=== PATIENT | female | born 1980 | race African-American/Black ===

== ENCOUNTER 2019-07-22 19:47 | Observation (INO) | payer OTHER, MEDICAID, SELFPAY ==
[2019-07-22] VITALS (8 sets, daily range): BP systolic 114–149; BP diastolic 66–85; PULSE 97–125; RESP 13–23; TEMP 37.9–39; O2SAT 92–98
--- NOTE | 2019-07-22 20:06 | DI.RAD.S_ITS ---
PROCEDURE: XR CHEST 1V INDICATIONS: fever, chills, cough TECHNIQUE: One view of the chest was acquired. COMPARISON: [facility], CR, XR CHEST 1 VIEW, 02/26/2019, 12:44. FINDINGS: Surgical changes and devices: None. Lungs and pleura: Lungs are clear. No pleural effusions or pneumothorax. Mediastinum: Mediastinal contours appear normal. Heart size is normal. Bones and chest wall: No suspicious bony lesions. Overlying soft tissues appear unremarkable. IMPRESSION: No acute cardiopulmonary disease process. Dictated by: June Singh MD, PhD on 07/22/2019 at 20:52 Approved by: June Singh MD, PhD on 07/22/2019 at 20:52
--- NOTE | 2019-07-22 20:24 | ED.FEVER ---
HPI - Fever General Chief Complaint: Fever Stated Complaint: really high temp/body pains/sob Time Seen by Provider: 07/22/19 20:00 Source: patient and family Mode of arrival: ambulatory Limitations: no limitations History of Present Illness HPI Narrative: 38-year-old female smoker morbidly obese patient with history of diabetes and hypertension presents with a friend and a chief complaint of a sudden onset severe abdominal pain with fever and shaking chills. Prior to her arrival her fever was measured orally at a maximum of 102 F. She denies much in the way of specific symptoms such as runny nose, sore throat or cough. She has no chest pain or shortness of breath. She denies any provocation or palliation of her abdominal pain nor any radiation. She denies any rash nor urinary complaints such as dysuria, frequency or urgency. She has no change in bowel habits. MD complaint: fever Onset (ago): hour(s) Temperature Source: oral Associated symptoms: chills and rigors Relieving factors: nothing Exacerbating factors: nothing Treatments prior to arrival fever: none Related Data Home Medications Medication Instructions Recorded Confirmed ALBUTEROL SULFATE (Ventolin / 1 - 2 puff INH QID PRN #0 01/17/11 07/23/19 Proventil) ALBUTEROL SULFATE/IPRATROPIUM 1 neb INH QID #0 01/17/11 07/23/19 (Iprat-Albut 0.5-3(2.5) MG/3 Ml) LISINOPRIL (Zestril / Prinivil) 10 mg PO Q DAY #0 01/17/11 07/23/19 Metformin Hydrochloride 500 mg PO DAILY #0 01/17/11 07/23/19 (Glucophage) glimepiride 4 mg PO DAILY 07/23/19 07/23/19 Allergies Allergy/AdvReac Type Severity Reaction Status Date / Time hydrocodone [From Vicodin] Allergy Severe Hives Verified 07/22/19 20:46 ibuprofen Allergy Severe Anaphylaxis Verified 07/22/19 20:46 acetaminophen AdvReac Vomiting Verified 07/22/19 20:46 [From Darvocet-N] ketorolac [From Toradol] AdvReac Vomiting Verified 07/22/19 20:46 propoxyphene AdvReac Vomiting Verified 07/22/19 20:46 [From Darvocet-N] Review of Systems Constitutional Constitutional: Reports chills, Denies fatigue, Reports fever(s), Denies frequent falls, Denies lethargy and Denies weakness Eyes Eyes: Denies change in vision, Denies eye discharge, Denies irritation and Denies loss of vision ENT Ears, Nose, Mouth, and Throat: Denies change in voice, Denies dizziness, Denies neck pain, Denies sore throat and Denies throat swelling Cardiovascular Cardiovascular: Denies chest pain, Denies irregular heart rhythm, Denies lightheadedness, Denies palpitations, Denies dyspnea, Denies dyspnea on exertion and Denies orthopnea Respiratory Respiratory: Denies cough, Denies dyspnea, Denies dyspnea on exertion and Denies wheezing Gastrointestinal Gastrointestinal: Reports abdominal pain, Denies change in bowel habits, Denies diarrhea, Denies nausea and Denies vomiting Genitourinary Genitourinary: Denies hematuria, Denies flank pain, Denies urinary incontinence and Denies urinary urgency Musculoskeletal Musculoskeletal: Denies back pain, Denies muscle weakness, Denies neck pain, Denies numbness and Denies tingling Integumentary/Breasts Skin/Breast: Denies pruritus, Denies erythema, Denies rash and Denies wounds Neurologic Neurologic: Denies behavioral changes, Denies confusion, Denies dizziness, Denies frequent falls, Denies loss of vision, Denies numbness, Denies tingling and Denies weakness Psychiatric Psychiatric: Denies anxiety, Denies behavioral changes, Denies confusion, Denies depression, Denies homicidal ideation and Denies suicidal ideation Endocrine Endocrine: Denies fatigue, Denies flushing and Denies palpitations Hematologic/Lymphatic Hematologic/Lymphatic: Denies easy bruising Allergic/Immunologic Allergic/Immunologic: Denies urticaria, Denies throat swelling and Denies wheezing PFSH Social History household members: spouse and children Smoking Status: Current every day smoker Social History household members: spouse and children Smoking Status: Current every day smoker Exam Narrative Exam Narrative: GENERAL: [38] year old patient appears stated age. Morbidly obese, clearly not feeling well HEAD: Atraumatic. Normocephalic. EYES: Pupils equal round and reactive. Extraocular motions intact. No scleral icterus. No injection or drainage. ENT: Nose without bleeding, purulent drainage. Throat without erythema, tonsillar hypertrophy or exudate. Airway patent. NECK: Trachea midline. Non tender CARDIOVASCULAR: Regular rate and rhythm without murmurs, gallops, or rubs. RESPIRATORY: Clear to auscultation. Breath sounds equal bilaterally. No wheezes, rales, or rhonchi. GASTROINTESTINAL: Abdomen soft, generalized tenderness, nondistended. EXTREMITIES: No edema or joint tenderness. BACK: Nontender without deformity or crepitance. No flank tenderness. NEURO: AOx3. SKIN: No rash or erythema of visible areas Initial Vital Signs Initial Vital Signs: Vital Signs Temperature 102.2 F H 07/22/19 19:52 Pulse Rate 122 H 07/22/19 19:52 Respiratory Rate 20 07/22/19 19:52 Blood Pressure 134/83 07/22/19 19:52 Pulse Oximetry 94 07/22/19 19:52 Course Orders Ordered: ED Orders 07/23/19 01:14 Respiratory Panel (Film Array) Stat Acetaminophen (Tylenol) 650 mg PO Q6HR PRN PRN Reason: As Needed for Fever/Mild Pain Al Hydrox/Mg Hydrox/Simethicone (Maalox Plus) 30 ml PO Q6HR PRN PRN Reason: Dyspepsia Albuterol (Ventolin) 2.5 mg INH [id number] PRN PRN Reason: Shortness Of Breath Albuterol/Ipratropium (Duoneb) 3 ml INH RTQ6HR PRN PRN Reason: Shortness Of Breath Bisacodyl (Dulcolax) 10 mg MO DAILY PRN PRN Reason: Constipation Calcium Carbonate (Tums) 1,000 mg PO Q4HR PRN PRN Reason: Dyspepsia Docusate Sodium (Colace) 100 mg PO BID PRN PRN Reason: Constipation Enoxaparin Sodium (Lovenox) 40 mg SUBCUT DAILY CHONG Hydromorphone HCl (Dilaudid) 1 mg IV Q4H PRN PRN Reason: Pain, Severe (7-10) Last Admin: 07/23/19 06:07 Dose: 1 mg Documented by: AHARSTA Sodium Chloride (Normal Saline 0.9%) 1,000 mls @ 75 mls/hr IV CONT CHONG Last Admin: 07/23/19 03:01 Dose: 75 mls/hr Documented by: MEY Ceftriaxone Sodium/Dextrose (Rocephin) 2 gm in 50 mls @ 100 mls/hr IV Q24H CHONG Ondansetron HCl (Zofran) 4 mg IV Q8HR PRN PRN Reason: Nausea And Vomiting Discontinued Medications Albuterol/Ipratropium (Duoneb) 3 ml INH NOW ONE Stop: 07/22/19 22:50 Last Admin: 07/22/19 22:53 Dose: 3 ml Documented by: LARRY Hydromorphone HCl (Dilaudid) 1 mg IV NOW ONE Stop: 07/22/19 22:50 Last Admin: 07/22/19 23:07 Dose: 1 mg Documented by: AZIZA Hydromorphone HCl (Dilaudid) 1 mg IV NOW ONE Stop: 07/23/19 01:29 Last Admin: 07/23/19 01:32 Dose: 1 mg Documented by: GASPER Sodium Chloride (Normal Saline 0.9%) 1,000 mls @ 200 mls/hr IV CONT CHONG Last Infusion: 07/23/19 02:15 Dose: 200 mls/hr Documented by: Admin: 07/22/19 20:42 Dose: 200 mls/hr Documented by: AZIZA Ceftriaxone Sodium/Dextrose (Rocephin) 2 gm in 50 mls @ 100 mls/hr IV NOW ONE Stop: 07/23/19 01:31 Last Infusion: 07/23/19 01:40 Dose: 0 mls/hr Documented by: Admin: 07/23/19 01:10 Dose: 100 mls/hr Documented by: AZIZA Vital Signs Vital signs: Vital Signs - 8 hr 07/22/19 19:52 Temperature 102.2 F H Pulse Rate 122 H Respiratory Rate 20 Blood Pressure 134/83 Pulse Oximetry 94 MDM - Fever Lab Data Result diagrams: 07/23/19 07:20 07/23/19 07:20 Labs: Lab Results 07/22/19 07/22/19 07/22/19 Range/Units 20:05 20:15 20:15 WBC 14.1 H (4.5-11.0) X10^3/uL RBC 4.54 (4.0-5.2) X10^6/uL Hgb 12.3 (12.0-16.0) g/dL Hct 38.1 (36-46) % MCV 83.9 (80-100) fL MCH 27.1 (26-34) PG MCHC 32.3 (30-36) % RDW 13.8 (11.6-14.8) % Plt Count 189 (150-400) X10^3/uL Neut % (Auto) 79.3 H (50-75) % Lymph % (Auto) 13.7 L (25-40) % Door % (Auto) 5.3 (3-14) % Eos % (Auto) 1.0 L (2-4) % Baso % (Auto) 0.7 (0-2) % Neut # (Auto) 98921 H (9175-3339) /uL Lymph # (Auto) 1900 (4612-7423) /uL Door # (Auto) 700 (0-900) /uL Eos # (Auto) 100 (0-450) /uL Baso # (Auto) 100 (0-100) /uL Sodium (137-145) mmol/L Potassium (3.4-5.1) mmol/L Chloride (98-107) mmol/L Carbon Dioxide (22-32) mmol/L BUN (7-17) mg/dL Creatinine (0.52-1.04) mg/dL Estimated GFR (>60) mL/min BUN/Creatinine Ratio (6-22) Glucose (70-100) mg/dL Lactate (0.7-2.1) mmol/L Calcium (8.4-10.2) mg/dL Total Bilirubin (0.2-1.3) mg/dL AST (14-36) IU/L ALT (9-52) IU/L Alkaline Phosphatase (38-126) U/L Total Protein (6.3-8.2) g/dL Albumin (3.5-5.0) g/dL Globulin (1.7-4.1) g/dL Albumin/Globulin Ratio (1.0-2.8) Lipase (23-300) U/L Procalcitonin < 0.05 (<0.5) ng/mL Chlamy pneumoniae PCR (Not Detect) Adenovirus (PCR) (Not Detect) B.parapertussis DNA PCR (Not Detect) Coronavirus OC43 (PCR) (Not Detect) Coronavirus HKU1 (PCR) (Not Detect) Coronavirus 229E (PCR) (Not Detect) Coronavirus NL63 (PCR) (Not Detect) Human Metapneumovir PCR (Not Detect) Influenza Type A (PCR) (Not Detect) Influenza Type B (PCR) (Not Detect) Influenza A & B (PCR) Negative (Negative) M. pneumoniae (PCR) (Not Detect) Parainfluenza 1 (PCR) (Not Detect) Parainfluenza 2 (PCR) (Not Detect) Parainfluenza 3 (PCR) (Not Detect) Parainfluenza 4 (PCR) (Not Detect) RSV (PCR) (Not Detect) Entero/Rhino (PCR) (Not Detect) 07/22/19 07/22/19 07/22/19 Range/Units 20:15 20:15 20:15 WBC (4.5-11.0) X10^3/uL RBC (4.0-5.2) X10^6/uL Hgb (12.0-16.0) g/dL Hct (36-46) % MCV (80-100) fL MCH (26-34) PG MCHC (30-36) % RDW (11.6-14.8) % Plt Count (150-400) X10^3/uL Neut % (Auto) (50-75) % Lymph % (Auto) (25-40) % Door % (Auto) (3-14) % Eos % (Auto) (2-4) % Baso % (Auto) (0-2) % Neut # (Auto) (9498-2456) /uL Lymph # (Auto) (9326-8177) /uL Door # (Auto) (0-900) /uL Eos # (Auto) (0-450) /uL Baso # (Auto) (0-100) /uL Sodium 136 L (137-145) mmol/L Potassium 4.4 (3.4-5.1) mmol/L Chloride 97 L (98-107) mmol/L Carbon Dioxide 27 (22-32) mmol/L BUN 10 (7-17) mg/dL Creatinine 0.70 (0.52-1.04) mg/dL Estimated GFR > 60.0 (>60) mL/min BUN/Creatinine Ratio 14.3 (6-22) Glucose 306 H (70-100) mg/dL Lactate 2.2 H (0.7-2.1) mmol/L Calcium 9.3 (8.4-10.2) mg/dL Total Bilirubin 0.5 (0.2-1.3) mg/dL AST 22 (14-36) IU/L ALT 21 (9-52) IU/L Alkaline Phosphatase 90 (38-126) U/L Total Protein 7.3 (6.3-8.2) g/dL Albumin 4.0 (3.5-5.0) g/dL Globulin 3.3 (1.7-4.1) g/dL Albumin/Globulin Ratio 1.2 (1.0-2.8) Lipase 42 (23-300) U/L Procalcitonin (<0.5) ng/mL Chlamy pneumoniae PCR (Not Detect) Adenovirus (PCR) (Not Detect) B.parapertussis DNA PCR (Not Detect) Coronavirus OC43 (PCR) (Not Detect) Coronavirus HKU1 (PCR) (Not Detect) Coronavirus 229E (PCR) (Not Detect) Coronavirus NL63 (PCR) (Not Detect) Human Metapneumovir PCR (Not Detect) Influenza Type A (PCR) (Not Detect) Influenza Type B (PCR) (Not Detect) Influenza A & B (PCR) (Negative) M. pneumoniae (PCR) (Not Detect) Parainfluenza 1 (PCR) (Not Detect) Parainfluenza 2 (PCR) (Not Detect) Parainfluenza 3 (PCR) (Not Detect) Parainfluenza 4 (PCR) (Not Detect) RSV (PCR) (Not Detect) Entero/Rhino (PCR) (Not Detect) 07/22/19 07/23/19 Range/Units 22:42 01:14 WBC (4.5-11.0) X10^3/uL RBC (4.0-5.2) X10^6/uL Hgb (12.0-16.0) g/dL Hct (36-46) % MCV (80-100) fL MCH (26-34) PG MCHC (30-36) % RDW (11.6-14.8) % Plt Count (150-400) X10^3/uL Neut % (Auto) (50-75) % Lymph % (Auto) (25-40) % Door % (Auto) (3-14) % Eos % (Auto) (2-4) % Baso % (Auto) (0-2) % Neut # (Auto) (9549-2015) /uL Lymph # (Auto) (7997-1363) /uL Door # (Auto) (0-900) /uL Eos # (Auto) (0-450) /uL Baso # (Auto) (0-100) /uL Sodium (137-145) mmol/L Potassium (3.4-5.1) mmol/L Chloride (98-107) mmol/L Carbon Dioxide (22-32) mmol/L BUN (7-17) mg/dL Creatinine (0.52-1.04) mg/dL Estimated GFR (>60) mL/min BUN/Creatinine Ratio (6-22) Glucose (70-100) mg/dL Lactate 1.6 (0.7-2.1) mmol/L Calcium (8.4-10.2) mg/dL Total Bilirubin (0.2-1.3) mg/dL AST (14-36) IU/L ALT (9-52) IU/L Alkaline Phosphatase (38-126) U/L Total Protein (6.3-8.2) g/dL Albumin (3.5-5.0) g/dL Globulin (1.7-4.1) g/dL Albumin/Globulin Ratio (1.0-2.8) Lipase (23-300) U/L Procalcitonin (<0.5) ng/mL Chlamy pneumoniae PCR Not detected (Not Detect) Adenovirus (PCR) Not detected (Not Detect) B.parapertussis DNA PCR Not detected (Not Detect) Coronavirus OC43 (PCR) Not detected (Not Detect) Coronavirus HKU1 (PCR) Not detected (Not Detect) Coronavirus 229E (PCR) Not detected (Not Detect) Coronavirus NL63 (PCR) Not detected (Not Detect) Human Metapneumovir PCR Not detected (Not Detect) Influenza Type A (PCR) Not detected (Not Detect) Influenza Type B (PCR) Not detected (Not Detect) Influenza A & B (PCR) (Negative) M. pneumoniae (PCR) Not detected (Not Detect) Parainfluenza 1 (PCR) Not detected (Not Detect) Parainfluenza 2 (PCR) Not detected (Not Detect) Parainfluenza 3 (PCR) Not detected (Not Detect) Parainfluenza 4 (PCR) Not detected (Not Detect) RSV (PCR) Not detected (Not Detect) Entero/Rhino (PCR) Not detected (Not Detect) Urine Dip Bedside Urine Glucose 1000 mg/dl Bedside Urine Bilirubin - Negative Bedside Urine Ketone +/- 5 Urine Specific [place] 1.015 Bedside Urine Occult Blood - Negative Bedside Urine pH 7.0 Bedside Urine Protein - Negative Bedside Urine Urobilinogen - Negative Bedside Urine Nitrite - Negative Bedside Urine Leukocytes - Negative Esterase Imaging Data Chest x-ray: Radiologist's impression: [facility] DATE TYPE STATUS AUTHOR Hx 07/22/19 21:16 June Singh 07/22/19 20:06 Juen Singh Shana 38, F1980 ADM IN, AC 221 -1 165.1cm 159.2kg BMI: 58.4kg/m? Search Chart No Data to Display NF - Not included in interaction checking Hives Anaphylaxis Vomiting Vomiting Vomiting ONSET Today 06:21 ArsenBailey 38 F 1980 [place] [address] XRay Report Signed Patient: Melissa Leger#: [id number] : 1980Acct:[id number] Age/Sex: 38 / FDate of Service: 07/22/19 Loc: ED Accession Number: [id number] Procedure: XR chest 1V Ordering Provider: Niels Frank D.O. PROCEDURE: XR CHEST 1V INDICATIONS: fever, chills, cough TECHNIQUE: One view of the chest was acquired. COMPARISON: [facility], , XR CHEST 1 VIEW, 02/26/2019, 12:44. FINDINGS: Surgical changes and devices: None. Lungs and pleura: Lungs are clear. No pleural effusions or pneumothorax. Mediastinum: Mediastinal contours appear normal. Heart size is normal. Bones and chest wall: No suspicious bony lesions. Overlying soft tissues appear unremarkable. IMPRESSION: No acute cardiopulmonary disease process. Dictated by: June Singh MD, PhD on 07/22/2019 at 20:52 Approved by: June Singh MD, PhD on 07/22/2019 at 20:52 CT scan - abdomen: Radiologist's impression: [address] [address] [address] Scan Report Signed Patient: Melissa Leger#: [id number] : 1980Acct:[id number] Age/Sex: 38 / FDate of Service: 07/22/19 Loc: ED Accession Number: [id number] Procedure: CT abdomen pelvis w con Ordering Provider: Niels Frank D.O. PROCEDURE: CT ABDOMEN PELVIS W CON INDICATIONS: abdominal pain, fever TECHNIQUE: After the administration of intravenous contrast, 5 mm thick sections acquired from the diaphragm to the symphysis. 5 mm coronal and sagittal reformats were acquired. For radiation dose reduction, the following was used: automated exposure control, adjustment of mA and/or kV according to patient size. COMPARISON: [facility], CT, CT ABDOMEN PELVIS WITH CONTRAST, 12/06/2017, 21:55. FINDINGS: Image quality: Limited by patient body habitus and patient motion artifact ABDOMEN: Lung bases: Lung bases are clear. Heart size is normal. Solid organs: Liver is normal in size and enhancement. Diffuse fatty infiltration of the liver. Gallbladder is surgically absent. Biliary system is non dilated. Pancreas enhances normally. Spleen is normal in size and enhancement. No adrenal nodules. Kidneys demonstrate normal size and enhancement, without hydronephrosis. Peritoneum and bowel: Bowel loops demonstrate normal wall thickness and caliber. No free fluid or air. Nodes and vessels: No retroperitoneal or mesenteric adenopathy by size criteria. Aorta and inferior vena cava are normal in size. Miscellaneous: No ventral hernias. PELVIS: Genitourinary: Bladder wall thickness is normal. Miscellaneous: No inguinal hernias or adenopathy. Bones: No suspicious bony lesions. No vertebral body compression fractures. Spine degenerative disc disease and facet arthropathy. IMPRESSION: 1. Image quality limited by patient body habitus and patient motion. 2. No acute disease process identified within limitations of the study. 3. The appendix is normal. 4. No free fluid or free air. 5. No dilated loops of bowel. 6. Status post cholecystectomy. 7. Hepatic steatosis. Dictated by: June Singh MD, PhD on 07/22/2019 at 21:56 Approved by: June Singh MD, PhD on 07/22/2019 at 22:01 [facility] Narrative Medical decision making narrative: 38-year-old female diabetic presents with fever and tachycardia as well as rigors. White count is slightly elevated and initial lactate is 2.2. Patient given IV fluids and antibiotics and repeat lactate has normalized. Chest x-ray is clear, abdominal CT does not demonstrate clear etiology and urine is clear. She had a head to toe examination of scan. There is no clear source of infection, the patient is septic and will require IV hydration, antibiotics and close observation Discharge Plan Departure Patient Disposition: Admitted As Inpatient Clinical Impression: Bacteremia Sepsis Qualifiers: Sepsis type: sepsis due to unspecified organism Sepsis acute organ dysfunction status: unspecified Qualified Code(s): A41.9 - Sepsis, unspecified organism Discharge Date/Time: 07/23/19 02:15 Admit Date/Time: 07/23/19 01:21 Admit Provider: Jose Luis Carcamo
[2019-07-22] MEDS: SODIUM CHLORIDE 0.9% 1,000 ML 200 ML IV (20:42)
[2019-07-22 20:45] LABS: Alanine Aminotransferase 21 IU/L (9-52); Albumin Globulin Ratio 1.2 (1.0-2.8); Alkaline Phosphatase 90 U/L (38-126); Aspartate Aminotransferase 22 IU/L (14-36); BUN Creatinine Ratio 14.3 (6-22); Bilirubin Total 0.5 mg/dL (0.2-1.3); Blood Urea Nitrogen 10 mg/dL (7-17); Calcium 9.3 mg/dL (8.4-10.2); Carbon Dioxide 27 mmol/L (22-32); Chloride 97 mmol/L (98-107); Estimated Glomerular Filt Rate > 60.0 mL/min (>60); Globulin 3.3 g/dL (1.7-4.1); Glucose 306 mg/dL (70-100); HEMOLYSIS < 15 (0-50); Lipase 42 U/L (23-300); Potassium 4.4 mmol/L (3.4-5.1); Sodium 136 mmol/L (137-145); Total Protein 7.3 g/dL (6.3-8.2)
[2019-07-22 20:46] LABS: Lactate (Lactic Acid) 2.2 mmol/L (0.7-2.1)
[2019-07-22 20:47] LABS: Add Manual Diff / Slide Review NO; Basophils Absolute Auto 100 /uL (0-100); Basophils Percent Auto 0.7 % (0-2); Eosinophils Absolute Auto 100 /uL (0-450); Hematocrit 38.1 % (36-46); Hemoglobin 12.3 g/dL (12.0-16.0); Lymphocytes Absolute Auto 1900 /uL (1100-4500); Lymphocytes Percent Auto 13.7 % (25-40); Mean Corpuscular HGB Conc 32.3 % (30-36); Mean Corpuscular Hemoglobin 27.1 PG (26-34); Mean Corpuscular Volume 83.9 fL (80-100); Monocytes Absolute Auto 700 /uL (0-900); Monocytes Percent Auto 5.3 % (3-14); Neutrophils Absolute Auto 11200 /uL (1500-7000); Neutrophils Percent Auto 79.3 % (50-75); Platelet Count 189 X10^3/uL (150-400); Red Blood Cell Count 4.54 X10^6/uL (4.0-5.2); Red Cell Distribution Width 13.8 % (11.6-14.8); White Blood Cell Count 14.1 X10^3/uL (4.5-11.0)
--- NOTE | 2019-07-22 21:16 | DI.CT.S_ITS ---
PROCEDURE: CT ABDOMEN PELVIS W CON INDICATIONS: abdominal pain, fever TECHNIQUE: After the administration of intravenous contrast, 5 mm thick sections acquired from the diaphragm to the symphysis. 5 mm coronal and sagittal reformats were acquired. For radiation dose reduction, the following was used: automated exposure control, adjustment of mA and/or kV according to patient size. COMPARISON: [facility], CT, CT ABDOMEN PELVIS WITH CONTRAST, 12/06/2017, 21:55. FINDINGS: Image quality: Limited by patient body habitus and patient motion artifact ABDOMEN: Lung bases: Lung bases are clear. Heart size is normal. Solid organs: Liver is normal in size and enhancement. Diffuse fatty infiltration of the liver. Gallbladder is surgically absent. Biliary system is non dilated. Pancreas enhances normally. Spleen is normal in size and enhancement. No adrenal nodules. Kidneys demonstrate normal size and enhancement, without hydronephrosis. Peritoneum and bowel: Bowel loops demonstrate normal wall thickness and caliber. No free fluid or air. Nodes and vessels: No retroperitoneal or mesenteric adenopathy by size criteria. Aorta and inferior vena cava are normal in size. Miscellaneous: No ventral hernias. PELVIS: Genitourinary: Bladder wall thickness is normal. Miscellaneous: No inguinal hernias or adenopathy. Bones: No suspicious bony lesions. No vertebral body compression fractures. Spine degenerative disc disease and facet arthropathy. IMPRESSION: 1. Image quality limited by patient body habitus and patient motion. 2. No acute disease process identified within limitations of the study. 3. The appendix is normal. 4. No free fluid or free air. 5. No dilated loops of bowel. 6. Status post cholecystectomy. 7. Hepatic steatosis. Dictated by: June Singh MD, PhD on 07/22/2019 at 21:56 Approved by: June Singh MD, PhD on 07/22/2019 at 22:01
[2019-07-22 21:22] LABS: Procalcitonin < 0.05 ng/mL (<0.5)
[2019-07-22 22:26] LABS: Reflexed Lactate in 2 Hours Y
[2019-07-22 22:38] LABS: Influenza A and B by PCR Rapid Negative (Negative)
[2019-07-22] MEDS: ALBUTEROL/IPRATROPIUM 3 ML AMPUL INH (22:53)
[2019-07-22] MEDS: HYDROMORPHONE 1 MG INJ IV (23:07)
[2019-07-22 23:08] LABS: Lactate 2HR (Lactic Acid Rflx) 1.6 mmol/L (0.7-2.1)
[2019-07-23] VITALS (12 sets, daily range): BP systolic 112–133; BP diastolic 56–82; PULSE 66–95; RESP 16–18; TEMP 36.1–37.2; O2SAT 92–100; BMI 58.3
[2019-07-23] MEDS: CEFTRIAXONE 2 GM/50 ML FROZ.PIGGY IV (01:10)
[2019-07-23] MEDS: HYDROMORPHONE 0.5 MG INJ 1 MG IV (01:32)
[2019-07-23 02:31] LABS: Adenovirus Not Detected (Not Detect); Bordetella pertussis Not Detected (Not Detect); Chlamydophila pneumoniae Not Detected (Not Detect); Coronavirus 229E Not Detected (Not Detect); Coronavirus HKU1 Not Detected (Not Detect); Coronavirus NL 63 Not Detected (Not Detect); Coronavirus OC43 Not Detected (Not Detect); Human Metapneumovirus Not Detected (Not Detect); Human Rhinovirus/Enterovirus Not Detected (Not Detect); Influenza A Not Detected (Not Detect); Influenza B Not Detected (Not Detect); Mycoplasma pneumoniae Not Detected (Not Detect); Parainfluenza Virus 1 Not Detected (Not Detect); Parainfluenza Virus 2 Not Detected (Not Detect); Parainfluenza Virus 3 Not Detected (Not Detect); Parainfluenza Virus 4 Not Detected (Not Detect); Respiratory Syncytial Virus Not Detected (Not Detect)
[2019-07-23] MEDS: SODIUM CHLORIDE 0.9% 1,000 ML 75 ML IV (03:01)
--- NOTE | 2019-07-23 03:04 | PC.ADMIT ---
[address] Admission Note: The patient,Bailey Leger,38 y/o, was given written information regarding hospital policies, unit procedures and contact persons. Patient's smoking status: Current every day smoker. Vital Signs - 8 hr 07/22/19 19:52 07/22/19 20:30 07/22/19 20:48 Temperature 102.2 F H Pulse Rate 122 H 125 H 122 H Respiratory Rate 20 23 20 Blood Pressure 134/83 Blood Pressure [Left Arm] 143/85 H 143/85 H Pulse Oximetry 94 93 94 07/22/19 21:00 07/22/19 21:59 07/22/19 22:56 Temperature 100.2 F H Pulse Rate 117 H 112 H 120 H Respiratory Rate 22 16 20 Blood Pressure Blood Pressure [Left Arm] 149/84 H 120/66 Pulse Oximetry 94 96 98 07/22/19 23:00 07/22/19 23:55 07/23/19 02:04 Temperature Pulse Rate 109 H 97 H 92 H Respiratory Rate 13 21 17 Blood Pressure 133/66 Blood Pressure [Left Arm] 114/68 135/76 Pulse Oximetry 97 92 92 07/23/19 02:38 Temperature 97.9 F Pulse Rate 95 H Respiratory Rate 18 Blood Pressure 131/74 Blood Pressure [Left Arm] Pulse Oximetry 92 Pt arrived via stretcher accompanied by ADVERTISING MATERIAL DISTRIBUTOR. Pt transferred herself to floor bed. AxOx3, can make needs known but does fall asleep quite easily during assessment and was agitated by being woken up to finish. Pt asked to eat a few times but would fall asleep very quickly, difficult to get answers from her at time of admission. Educated pt on purpose and use of call light, pt appeared to acknowledge teaching. Vital signs notable for tachycardia, c/o abdominal pain and is tender on palpation, bowel tones are positive in all 4 quadrants. Pt denied nausea but did have nausea prior to admission and in the emergency department. Pt is a moderate fall risk, bed alarm is on and functioning, will continue to monitor.
--- NOTE | 2019-07-23 03:18 | P.HP_ITS ---
History of Present Illness History of Present Illness Date Patient Seen: 07/23/19 Time Patient Seen: 02:18 Chief complaint: really high temp/body pains/sob Narrative: Mrs. Bailey Leger is 38-year-old female patient with history of asthma, COPD, hypertension and diabetes type 2 who presents to the ER with complaints of a high fever. The patient reports she is here visiting for retreat and resides in [facility]. She was in hindu at 3:00 p.m. when she fell asleep and upon waking had shaking rigors. She was assisted home where her symptoms continued and she developed a fever up to 102.3 ? prompting her to present to the ER. She has so she ended complaints of dizziness, abdominal pain and nausea. She reports no other prodromal symptoms and denies headache nasal congestion or sore throat, chest pain or palpitations or shortness of breath. She has some chest tightness with albuterol treatment. The patient reports no complaints of diarrhea with her last bowel movement this morning and no complaints of urinary symptoms and will wake 2-3 times nightly to void. Nothing seems to make her symptoms better or worse. Upon arrival in the ER patient had a temperature of 102.2?, was tachycardic at 122, blood pressure of 134 over 83, respirations of 20 saturating 94% on room air. A chest x-ray was taken found no acute cardiopulmonary disease process, abdominal CT finds hepatic steatosis but identifies no other intra-abdominal pathology. On CBC she has an elevated white count of 14.1 with hemoglobin of 12.3 and hematocrit of 38.1 and platelets of 189. Her chemistries are all within normal limits with the elevated glucose at 3:06 a.m.. Her anion gap is calculated at 12. She did have an elevated lactate at 2.2 which only fluids went down to 1.6. She has a negative procalcitonin less than 0.05 and a negative flu. Her LFTs are within normal limits with a bilirubin of 0.5. The patient is admitted to the hospital for SIRS with fever of unknown origin. Patient History Medical History (Updated 07/23/19 @ 09:00 by EARLENE Rivers) Asthma, mild persistent (Acute) COPD (chronic obstructive pulmonary disease) (Acute) Hypertension (Acute) Vyv-hmimblh-bevytyvzh diabetes mellitus without complications (Acute) Surgical History (Updated 07/23/19 @ 09:00 by EARLENE Rivers) History of cholecystectomy (Acute) Social History household members: spouse and children Smoking Status: Current every day smoker Family & Social History Social History: household members spouse,children Prior Living Arrangements Apartment/Condo Safety & Behavioral: Feels Safe in Current Yes Environment Been Physically Hurt or No Threatened By a Person Suicidal Ideation Description None Suicide Plan Description No Plan Tobacco & Substance use: Smoking Status Current every day smoker alcohol intake frequency other Substance Use Type marijuana Comment: The patient is in [employer] visiting for a hindu retreat and lives in an apartment in [facility] where she resides with her CT and her boyfriend of 8 years. The patient endorses a family history of her mother having a stroke and her father passing away from unknown reason. She has 1 sister whom she does not communicate with no her medical history. Smoking: Approximately currently smokes 5 cigarettes per day Alcohol: Patient states she used to drink a lot in the past but quit 3 years ago Substance use: Patient endorses smoking marijuana. Advanced directives. The patient has no formal documentation of dance directives however she states her wish to be FULL CODE. She designates her boyfriend Nilson Dubois to be her surrogate decision maker. Meds Home Medications and Allergies Home Medications Medication Instructions Recorded Confirmed Type ALBUTEROL SULFATE (Ventolin / 1 - 2 puff INH QID PRN #0 01/17/11 07/23/19 History Proventil) ALBUTEROL SULFATE/IPRATROPIUM 1 neb INH QID #0 01/17/11 07/23/19 History (Iprat-Albut 0.5-3(2.5) MG/3 Ml) LISINOPRIL (Zestril / Prinivil) 10 mg PO Q DAY #0 01/17/11 07/23/19 History Metformin Hydrochloride 500 mg PO DAILY #0 01/17/11 07/23/19 History (Glucophage) glimepiride 4 mg PO DAILY 07/23/19 07/23/19 History Allergies Allergy/AdvReac Type Severity Reaction Status Date / Time hydrocodone [From Vicodin] Allergy Severe Hives Verified 07/22/19 20:46 ibuprofen Allergy Severe Anaphylaxis Verified 07/22/19 20:46 acetaminophen AdvReac Vomiting Verified 07/22/19 20:46 [From Darvocet-N] ketorolac [From Toradol] AdvReac Vomiting Verified 07/22/19 20:46 propoxyphene AdvReac Vomiting Verified 07/22/19 20:46 [From Darvocet-N] Review of Systems Review of Systems ROS Unobtainable: All systems reviewed & are unremarkable except as noted in HPI and below Exam Vital Signs (past 8 hours): - 07/22/19 19:52 07/22/19 20:30 07/22/19 20:48 Temperature 102.2 F H Pulse Rate 122 H 125 H 122 H Respiratory Rate 20 23 20 Blood Pressure 134/83 Blood Pressure [Left Arm] 143/85 H 143/85 H Pulse Oximetry 94 93 94 07/22/19 21:00 07/22/19 21:59 07/22/19 22:56 Temperature 100.2 F H Pulse Rate 117 H 112 H 120 H Respiratory Rate 22 16 20 Blood Pressure Blood Pressure [Left Arm] 149/84 H 120/66 Pulse Oximetry 94 96 98 07/22/19 23:00 07/22/19 23:55 07/23/19 02:04 Temperature Pulse Rate 109 H 97 H 92 H Respiratory Rate 13 21 17 Blood Pressure 133/66 Blood Pressure [Left Arm] 114/68 135/76 Pulse Oximetry 97 92 92 07/23/19 02:38 Temperature 97.9 F Pulse Rate 95 H Respiratory Rate 18 Blood Pressure 131/74 Blood Pressure [Left Arm] Pulse Oximetry 92 Oxygen Delivery Method Room Air Oxygen Flow Rate 0 Narrative Exam Narrative: GENERAL APPEARANCE: well developed, super morbidly obese with a BMI 58.4 who is uncomfortable appearing HEENT: Normocephalic, PERRLA, conjunctiva clear, EOMs intact without nystagmus, no sinus tenderness to percussion, no rhinorrhea, mucous membranes are moist and pink without lesions or exudate. NECK/THYROID: neck supple, no JVD, no carotid bruit, no thyromegaly, trachea midline. LYMPH NODES: no cervical or supraclavicular lymphadenopathy. SKIN: warm and dry, no suspicious lesions, no rashes, good turgor. HEART: Regular rate and rhythm, S1-S2 without murmur, no rubs or gallops, brisk capillary refill, no edema LUNGS: Breath sounds with scattered end expiratory wheezing, no cough present CHEST: Symmetrical movement, no accessory muscle use, no pain to AP and lateral compression. ABDOMEN: Soft, rotund, generalized abdominal tenderness on palpation, no organomegaly with exam impaired by body habitus, active bowel tones. BACK: Nontender EXTREMITIES: moves all extremities, strength is 5/5 and symmetrical, no deformities or joint effusions. NEUROLOGIC: AAO x4, cranial nerves II-XII grossly intact , motor strength normal upper and lower extremities, distal sensation intact to light touch PSYCH: alert, cognitive function intact, good eye contact, appropriate with stable behavior Objective Labs Result Diagrams: 07/23/19 07:20 07/23/19 07:20 Labs: Laboratory Results - last 24 hr 07/22/19 07/22/19 07/22/19 20:05 20:15 20:15 WBC 14.1 H RBC 4.54 Hgb 12.3 Hct 38.1 MCV 83.9 MCH 27.1 MCHC 32.3 RDW 13.8 Plt Count 189 Neut % (Auto) 79.3 H Lymph % (Auto) 13.7 L [place] % (Auto) 5.3 Eos % (Auto) 1.0 L Baso % (Auto) 0.7 Neut # (Auto) 01764 H Lymph # (Auto) 1900 [place] # (Auto) 700 Eos # (Auto) 100 Baso # (Auto) 100 Sodium Potassium Chloride Carbon Dioxide BUN Creatinine Estimated GFR BUN/Creatinine Ratio Glucose Lactate Calcium Total Bilirubin AST ALT Alkaline Phosphatase Total Protein Albumin Globulin Albumin/Globulin Ratio Lipase Procalcitonin < 0.05 Chlamy pneumoniae PCR Adenovirus (PCR) B.parapertussis DNA PCR Coronavirus OC43 (PCR) Coronavirus HKU1 (PCR) Coronavirus 229E (PCR) Coronavirus NL63 (PCR) Human Metapneumovir PCR Influenza Type A (PCR) Influenza Type B (PCR) Influenza A & B (PCR) Negative M. pneumoniae (PCR) Parainfluenza 1 (PCR) Parainfluenza 2 (PCR) Parainfluenza 3 (PCR) Parainfluenza 4 (PCR) RSV (PCR) Entero/Rhino (PCR) 07/22/19 07/22/19 07/22/19 20:15 20:15 20:15 WBC RBC Hgb Hct MCV MCH MCHC RDW Plt Count Neut % (Auto) Lymph % (Auto) [place] % (Auto) Eos % (Auto) Baso % (Auto) Neut # (Auto) Lymph # (Auto) [place] # (Auto) Eos # (Auto) Baso # (Auto) Sodium 136 L Potassium 4.4 Chloride 97 L Carbon Dioxide 27 BUN 10 Creatinine 0.70 Estimated GFR > 60.0 BUN/Creatinine Ratio 14.3 Glucose 306 H Lactate 2.2 H Calcium 9.3 Total Bilirubin 0.5 AST 22 ALT 21 Alkaline Phosphatase 90 Total Protein 7.3 Albumin 4.0 Globulin 3.3 Albumin/Globulin Ratio 1.2 Lipase 42 Procalcitonin Chlamy pneumoniae PCR Adenovirus (PCR) B.parapertussis DNA PCR Coronavirus OC43 (PCR) Coronavirus HKU1 (PCR) Coronavirus 229E (PCR) Coronavirus NL63 (PCR) Human Metapneumovir PCR Influenza Type A (PCR) Influenza Type B (PCR) Influenza A & B (PCR) M. pneumoniae (PCR) Parainfluenza 1 (PCR) Parainfluenza 2 (PCR) Parainfluenza 3 (PCR) Parainfluenza 4 (PCR) RSV (PCR) Entero/Rhino (PCR) 07/22/19 07/23/19 22:42 01:14 WBC RBC Hgb Hct MCV MCH MCHC RDW Plt Count Neut % (Auto) Lymph % (Auto) [place] % (Auto) Eos % (Auto) Baso % (Auto) Neut # (Auto) Lymph # (Auto) [place] # (Auto) Eos # (Auto) Baso # (Auto) Sodium Potassium Chloride Carbon Dioxide BUN Creatinine Estimated GFR BUN/Creatinine Ratio Glucose Lactate 1.6 Calcium Total Bilirubin AST ALT Alkaline Phosphatase Total Protein Albumin Globulin Albumin/Globulin Ratio Lipase Procalcitonin Chlamy pneumoniae PCR Not detected Adenovirus (PCR) Not detected B.parapertussis DNA PCR Not detected Coronavirus OC43 (PCR) Not detected Coronavirus HKU1 (PCR) Not detected Coronavirus 229E (PCR) Not detected Coronavirus NL63 (PCR) Not detected Human Metapneumovir PCR Not detected Influenza Type A (PCR) Not detected Influenza Type B (PCR) Not detected Influenza A & B (PCR) M. pneumoniae (PCR) Not detected Parainfluenza 1 (PCR) Not detected Parainfluenza 2 (PCR) Not detected Parainfluenza 3 (PCR) Not detected Parainfluenza 4 (PCR) Not detected RSV (PCR) Not detected Entero/Rhino (PCR) Not detected Assessment & Plan Assessment & Plan narrative: This is a 38-year-old female patient who is admitted to the hospital with SIRS beating septic criteria but no identified source. 1. Acute systemic inflammatory response syndrome, present on admission, active. -The patient meets septic criteria being febrile at 1-2.2, tachycardic at 122, WBCs of 14.2 and, lactate of 2.2. -the patient has received fluid resuscitation and repeat lactate is 1.6. -no source of infection is identified with negative checks x-ray, negative urinalysis, CT of the abdomen and pelvis being negative at no skin lesions. -blood cultures are drawn, respiratory panel will be obtained. 2. Diabetes non insulin dependent, uncontrolled, chronic, present on admission, active. -the patient Brain takes glimepiride 4 mg daily and metformin 500 mg daily. Blood sugar on arrival to the ER is 306. Anion gap is 12. -patient endorses that her blood sugars have been elevated over the last several days in the 160s 170s. She has in the past used correctional insulin as needed. -fingerstick blood sugars AC and HS, cover with sliding scale correctional insulin medium range. -will obtain hemoglobin A1c. 3. Chronic obstructive pulmonary disease, present on admission, active -patient with a personal history of smoking. -will continue home regimen of doing nebs every 6 hours as needed and albuterol every 2 hours as needed. -respiratory therapy to consult and evaluate -discussed smoking cessation greater than 3 less than 10 minutes. 4. Asthma, chronic, present on admission, active -patient is currently using DuoNeb and albuterol for respiratory management of COPD. -patient presently has scattered wheezing resolved with above treatment of albuterol and duo nebs. -will defer to primary care divider regarding use of inhaled steroids. 5. Essential Hypertension, chronic, stable -will continue patient's home regimen of lisinopril 10 mg daily. The patient is admitted to the hospital with SIRS meeting septic criteria with yet to be identified source. Blood cultures and respiratory panel pending patient will be admitted to the hospital observation with expected length of stay to be less than 2 midnights. Scores GCS Lawtons coma scale eye opening: Spontaneous Lawtons coma scale verbal response: Orientated Vicky coma scale motor response: Obey commands Lawtons coma scale total score: 15 SOFA PaO2/FIO2: < 400 mmHg Platelets: >= 150 Bilirubin: < 1.2 mg/dL Hypotension: MAP >= 70 mmHg Lawtons Coma Scale: 15 Renal: < 1.2 mg/dL SOFA Score: 1 Quality VTE Deep Vein Thrombosis/Pulmonary Embolism Present on Admission: No
--- NOTE | 2019-07-23 04:39 | PC.NURSE ---
Addendum entered by Zaria Muro R.N. 07/23/19 06:12: Medicated with IV Dilaudid after waiting for SECRETARY RECEPTIONIST to put in order for pain med and pharmacy to verify. States pain is still at 8/10. Currently awake and O2 sat is 96%. O2 remains on as when she sleeps her sat decreases. Original Note: When asleep O2 sat is dropping down below 93% and SECRETARY RECEPTIONIST order to keep > 93% so O2 started at 1L/min per NC. SCD's applied. Patient complains of 8/10 abdominal pain and wants something stronger than ordered Tylenol; EARLENE Carcamo, made aware and will review chart.
[2019-07-23] MEDS: HYDROMORPHONE 2 MG INJ 1 MG IV ×5 (06:07→22:35)
[2019-07-23 07:32] LABS: Add Manual Diff / Slide Review NO; Basophils Absolute Auto 200 /uL (0-100); Basophils Percent Auto 1.5 % (0-2); Eosinophils Absolute Auto 200 /uL (0-450); Eosinophils Percent Auto 1.7 % (2-4); Hematocrit 35.7 % (36-46); Hemoglobin 11.6 g/dL (12.0-16.0); Lymphocytes Absolute Auto 3500 /uL (1100-4500); Lymphocytes Percent Auto 26.9 % (25-40); Mean Corpuscular HGB Conc 32.6 % (30-36); Mean Corpuscular Hemoglobin 27.1 PG (26-34); Mean Corpuscular Volume 83.2 fL (80-100); Monocytes Absolute Auto 700 /uL (0-900); Monocytes Percent Auto 5.6 % (3-14); Neutrophils Absolute Auto 8300 /uL (1500-7000); Neutrophils Percent Auto 64.3 % (50-75); Platelet Count 180 X10^3/uL (150-400); Red Blood Cell Count 4.29 X10^6/uL (4.0-5.2); Red Cell Distribution Width 13.9 % (11.6-14.8); White Blood Cell Count 12.8 X10^3/uL (4.5-11.0)
[2019-07-23 07:45] LABS: Blood Urea Nitrogen 8 mg/dL (7-17); Calcium 8.9 mg/dL (8.4-10.2); Carbon Dioxide 29 mmol/L (22-32); Chloride 101 mmol/L (98-107); Cholesterol 98 mg/dL (140-199); Estimated Glomerular Filt Rate > 60.0 mL/min (>60); Glucose 245 mg/dL (70-100); HDL Cholesterol 47 mg/dL (40-60); HEMOLYSIS < 15 (0-50); LDL Cholesterol Calculated 34 mg/dL (<100); Magnesium 1.6 mg/dL (1.6-2.3); Potassium 3.9 mmol/L (3.4-5.1); Sodium 137 mmol/L (137-145); Triglycerides 85 mg/dL (35-150)
[2019-07-23 07:57] LABS: Procalcitonin < 0.05 ng/mL (<0.5)
--- NOTE | 2019-07-23 08:03 | P.PN_ITS ---
Subjective Subjective Date Patient Seen: 07/23/19 Interval history: She is seen today to follow-up her fever, abdominal pain, diabetes. Her temperature reached 102.2 last night but the workup for the source has been on informative. The lactate has dropped to 1.6 with IV fluids. The white blood count has dropped to 12.8. Her abdominal CT was negative. Her chest x-ray is reviewed today and the film looks under penetrated but without clear infiltrates present. Her EKG is also reviewed and shows sinus tachycardia. She is very hungry and wants to start eating saying that her abdominal pain is unrelated to eating. Her UA results are not available so will need to be repeated. They are reported as being normal. Exam Vital Signs (past 8 hours): - 07/23/19 02:04 07/23/19 02:38 07/23/19 06:21 Temperature 97.9 F 98.9 F Pulse Rate 92 H 95 H 88 Respiratory Rate 17 18 16 Blood Pressure 133/66 131/74 112/56 L Pulse Oximetry 92 92 97 Oxygen Delivery Method Room Air Oxygen Flow Rate 1 Narrative Exam Narrative: She is a very overweight and very focused on eating again. No apparent distress. Oriented x3. Heart is regular rate and rhythm without murmur. Lungs are clear to auscultation bilaterally. Abdomen is obese, bowel sounds positive, nontender, no organomegaly. Extremities have no ankle edema Objective Labs Result Diagrams: 07/23/19 07:20 07/23/19 07:20 Labs: Laboratory Results - last 24 hr 07/22/19 07/22/19 07/22/19 20:05 20:15 20:15 WBC 14.1 H RBC 4.54 Hgb 12.3 Hct 38.1 MCV 83.9 MCH 27.1 MCHC 32.3 RDW 13.8 Plt Count 189 Neut % (Auto) 79.3 H Lymph % (Auto) 13.7 L [place] % (Auto) 5.3 Eos % (Auto) 1.0 L Baso % (Auto) 0.7 Neut # (Auto) 81464 H Lymph # (Auto) 1900 [place] # (Auto) 700 Eos # (Auto) 100 Baso # (Auto) 100 Sodium Potassium Chloride Carbon Dioxide BUN Creatinine Estimated GFR BUN/Creatinine Ratio Glucose Lactate Calcium Magnesium Total Bilirubin AST ALT Alkaline Phosphatase Total Protein Albumin Globulin Albumin/Globulin Ratio Triglycerides Cholesterol LDL Cholesterol, Calc HDL Cholesterol Lipase Procalcitonin < 0.05 Chlamy pneumoniae PCR Adenovirus (PCR) B.parapertussis DNA PCR Coronavirus OC43 (PCR) Coronavirus HKU1 (PCR) Coronavirus 229E (PCR) Coronavirus NL63 (PCR) Human Metapneumovir PCR Influenza Type A (PCR) Influenza Type B (PCR) Influenza A & B (PCR) Negative M. pneumoniae (PCR) Parainfluenza 1 (PCR) Parainfluenza 2 (PCR) Parainfluenza 3 (PCR) Parainfluenza 4 (PCR) RSV (PCR) Entero/Rhino (PCR) 07/22/19 07/22/19 07/22/19 20:15 20:15 20:15 WBC RBC Hgb Hct MCV MCH MCHC RDW Plt Count Neut % (Auto) Lymph % (Auto) [place] % (Auto) Eos % (Auto) Baso % (Auto) Neut # (Auto) Lymph # (Auto) [place] # (Auto) Eos # (Auto) Baso # (Auto) Sodium 136 L Potassium 4.4 Chloride 97 L Carbon Dioxide 27 BUN 10 Creatinine 0.70 Estimated GFR > 60.0 BUN/Creatinine Ratio 14.3 Glucose 306 H Lactate 2.2 H Calcium 9.3 Magnesium Total Bilirubin 0.5 AST 22 ALT 21 Alkaline Phosphatase 90 Total Protein 7.3 Albumin 4.0 Globulin 3.3 Albumin/Globulin Ratio 1.2 Triglycerides Cholesterol LDL Cholesterol, Calc HDL Cholesterol Lipase 42 Procalcitonin Chlamy pneumoniae PCR Adenovirus (PCR) B.parapertussis DNA PCR Coronavirus OC43 (PCR) Coronavirus HKU1 (PCR) Coronavirus 229E (PCR) Coronavirus NL63 (PCR) Human Metapneumovir PCR Influenza Type A (PCR) Influenza Type B (PCR) Influenza A & B (PCR) M. pneumoniae (PCR) Parainfluenza 1 (PCR) Parainfluenza 2 (PCR) Parainfluenza 3 (PCR) Parainfluenza 4 (PCR) RSV (PCR) Entero/Rhino (PCR) 07/22/19 07/23/19 07/23/19 22:42 01:14 07:20 WBC 12.8 H RBC 4.29 Hgb 11.6 L Hct 35.7 L MCV 83.2 MCH 27.1 MCHC 32.6 RDW 13.9 Plt Count 180 Neut % (Auto) 64.3 Lymph % (Auto) 26.9 [place] % (Auto) 5.6 Eos % (Auto) 1.7 L Baso % (Auto) 1.5 Neut # (Auto) 8300 H Lymph # (Auto) 3500 [place] # (Auto) 700 Eos # (Auto) 200 Baso # (Auto) 200 H Sodium Potassium Chloride Carbon Dioxide BUN Creatinine Estimated GFR BUN/Creatinine Ratio Glucose Lactate 1.6 Calcium Magnesium Total Bilirubin AST ALT Alkaline Phosphatase Total Protein Albumin Globulin Albumin/Globulin Ratio Triglycerides Cholesterol LDL Cholesterol, Calc HDL Cholesterol Lipase Procalcitonin Chlamy pneumoniae PCR Not detected Adenovirus (PCR) Not detected B.parapertussis DNA PCR Not detected Coronavirus OC43 (PCR) Not detected Coronavirus HKU1 (PCR) Not detected Coronavirus 229E (PCR) Not detected Coronavirus NL63 (PCR) Not detected Human Metapneumovir PCR Not detected Influenza Type A (PCR) Not detected Influenza Type B (PCR) Not detected Influenza A & B (PCR) M. pneumoniae (PCR) Not detected Parainfluenza 1 (PCR) Not detected Parainfluenza 2 (PCR) Not detected Parainfluenza 3 (PCR) Not detected Parainfluenza 4 (PCR) Not detected RSV (PCR) Not detected Entero/Rhino (PCR) Not detected 07/23/19 07/23/19 07:20 07:20 WBC RBC Hgb Hct MCV MCH MCHC RDW Plt Count Neut % (Auto) Lymph % (Auto) [place] % (Auto) Eos % (Auto) Baso % (Auto) Neut # (Auto) Lymph # (Auto) [place] # (Auto) Eos # (Auto) Baso # (Auto) Sodium 137 Potassium 3.9 Chloride 101 Carbon Dioxide 29 BUN 8 Creatinine 0.50 L Estimated GFR > 60.0 BUN/Creatinine Ratio 16.0 Glucose 245 H Lactate Calcium 8.9 Magnesium 1.6 Total Bilirubin AST ALT Alkaline Phosphatase Total Protein Albumin Globulin Albumin/Globulin Ratio Triglycerides 85 Cholesterol 98 L LDL Cholesterol, Calc 34 HDL Cholesterol 47 Lipase Procalcitonin < 0.05 Chlamy pneumoniae PCR Adenovirus (PCR) B.parapertussis DNA PCR Coronavirus OC43 (PCR) Coronavirus HKU1 (PCR) Coronavirus 229E (PCR) Coronavirus NL63 (PCR) Human Metapneumovir PCR Influenza Type A (PCR) Influenza Type B (PCR) Influenza A & B (PCR) M. pneumoniae (PCR) Parainfluenza 1 (PCR) Parainfluenza 2 (PCR) Parainfluenza 3 (PCR) Parainfluenza 4 (PCR) RSV (PCR) Entero/Rhino (PCR) Assessment & Plan Assessment & Plan narrative: This is a 38-year-old female patient who is admitted to the hospital with SIRS meeting septic criteria but no identified source. 1. Acute systemic inflammatory response syndrome, present on admission, active. -The patient meets septic criteria being febrile at 102.2, tachycardic at 122, WBCs of 14.2 and, lactate of 2.2. -the patient has received fluid resuscitation and repeat lactate is 1.6. -no source of infection is identified with negative chest x-ray, negative urinalysis, CT of the abdomen and pelvis being negative and no skin lesions. -Continue Ceftriaxone -blood cultures are drawn, respiratory panel is negative -UA results are not found so it will be reordered. 2. Diabetes non insulin dependent, uncontrolled, chronic, present on admission, active. -the patient takes glimepiride 4 mg daily and metformin 500 mg daily. Blood sugar on arrival to the ER is 306. Anion gap is 12. -patient endorses that her blood sugars have been elevated over the last several days in the 160s 170s. She has in the past used correctional insulin as needed. -fingerstick blood sugars AC and HS, cover with sliding scale correctional insulin medium range. -Hemoglobin A1c pending. 3. Chronic obstructive pulmonary disease, present on admission, active -patient with a personal history of smoking. -will continue home regimen of doing nebs every 6 hours as needed and albuterol every 2 hours as needed. -respiratory therapy to consult and evaluate -discussed smoking cessation greater than 3 less than 10 minutes. 4. Asthma, chronic, present on admission, active -patient is currently using DuoNeb and albuterol for respiratory management of COPD. -patient presently has scattered wheezing resolved with above treatment of albuterol and duo nebs. -will defer to primary care divider regarding use of inhaled steroids. 5. Essential Hypertension, chronic, stable -will continue patient's home regimen of lisinopril 10 mg daily. The patient is admitted to the hospital with SIRS meeting septic criteria with yet to be identified source. Quality VTE Deep Vein Thrombosis/Pulmonary Embolism Present on Admission: No
[2019-07-23] MEDS: ALBUTEROL/IPRATROPIUM 3 ML AMPUL INH ×4 (08:30→21:27)
[2019-07-23] MEDS: ENOXAPARIN 40 MG/0.4 ML SYRINGE SUBCUT (10:29)
[2019-07-23] MEDS: ACETAMINOPHEN 325 MG TABLET 650 MG PO ×2 (10:29→18:30)
[2019-07-23] MEDS: INSULIN ASPART 100 UNIT/ML INSULN PEN SUBCUT ×3 (13:07→21:11)
--- NOTE | 2019-07-23 16:18 | CM.DANOTE ---
Addendum entered by Merle Hartman 07/23/19 16:28: Faxed initial clinical to [facility] per protocol. KJS Original Note: DCP/Assessment: Reviewed chart. Patient is a 38yr old female admitted to [facility]. with sudden onset of abdominal pain. PCP listed is Dr. Kendrick. Primary payor is 1)[facility] 2)Medicaid. Met with patient explained CM/SW role. Patient morbidly obese resting comfortably in bed. Patient reports that she was in [place] with her lutheran when she had sudden onset of abdominal pain. Patient reports that she resides in [place] with her SO/Nilson. Patient denies using any DME at baseline. Patient reports that she does not drive, mainly rides the bus. Patient hopes to d/c home within the next 24-48hrs. Patient currently on IV abx for SIRS/sepsis. Blood cultures pending. Per MD in AM rounds, patient most likely will d/c home on po abx. Patient reports that she will need assistance with transportation home. Patient does have Medicaid so CM team to coordinate with them for transport when patient medically stable. Patient reports that she is up in room, moving independently. Patient does not anticipate any d/c planning needs. P: Anticipate home when stable. CM team to assist with Medicaid transport if still needed at time of discharge. JESSICA Luna Discharge Planning/Care Management CM Discharge Assessment Start: 07/23/19 16:12 Freq: Status: Active Protocol: Document 07/23/19 16:12 TERELL (Rec: 07/23/19 16:18 TERELL [id number]) Discharge Planning Assessment Assigned Axle Bearing Polisher JESSICA Luna Contact Information Nilson Dubois (significant other) [phone] Advance Directives? No History Provided By Patient,Medical Record Prior Living Arrangements Apartment/Condo Household Members spouse,children Type of transporation used prior to Relies on Others admit Independent with ADL's Yes Is patient alert and oriented? Yes Caregiver for Another No Barriers to Discharge No Discharge Plan Home Transportation Arrangement Patient reports will need transport arranged through Medicaid transport. Whiteboard Updated in Patient Room with Yes name and ext. # of Axle Bearing Polisher Review Status In Process Next Review Type Continued Stay Review
[2019-07-23] MEDS: CEFTRIAXONE 1 GM/50 ML FROZ.PIGGY IV (18:30)
[2019-07-23 18:37] LABS: Bacteria Urine None Seen; WBC Urine None Seen (0-5/HPF)
[2019-07-23 18:38] LABS: Appearance Urine UA CLEAR; Bilirubin Urine UA NEGATIVE (NEGATIVE); Color Urine UA YELLOW; Glucose Urine UA 2+ g/dL (Negative); Ketones Urine UA NEGATIVE (NEGATIVE); Leukocyte Esterase Urine UA NEGATIVE (NEGATIVE); Nitrite Urine UA NEGATIVE (Negative); Occult Blood Urine UA TRACE-LYSED (Negative); Protein Urine UA NEGATIVE (Negative); Urobilinogen Urine UA 0.2 E.U./dL (0.2)
[2019-07-23 18:42] LABS: pH Urine UA 6.5 (4.5-8.0)
[2019-07-23 18:43] LABS: Culture Indicated Urine Cult Not Indicated; RBC Urine 0-1/HPF (0-5/HPF); Squamous Epithelial Cell Urine 1-5 /HPF (0-5/HPF)
[2019-07-23] MEDS: INSULIN GLARGINE 100 UNIT/ML 3ML PEN 10 UNIT SUBCUT (21:10)
--- NOTE | 2019-07-23 22:45 | PC.NURSE ---
Pt UA negative. She routinely rates her pain 7/10 when her dilaudid is available. She is impatient and short tempered. Her 1700 BG = 290 and her 2100 = 346. Her room garbage contained approx 6 snack size wrappers of chips and Fritos. She had a visitor today. Tried to educate about blood glucose but patient not receptive. Pt is able to sleep and eat and drink, voiding qs dark yellow. She had two breathing treatment today. She often refuses SCDs. She had a shower today.
[2019-07-24] VITALS: BP 123/57; PULSE 71; RESP 16; TEMP 37; O2SAT 93
[2019-07-24] MEDS: CEFTRIAXONE 2 GM/50 ML FROZ.PIGGY IV (00:48)
--- NOTE | 2019-07-24 00:49 | PC.NURSE ---
Patient refused SCD's stating they interrupted her sleep. The patient was educated on the benefits of wearing the SCD's (ie. blood clot prevention).
[2019-07-24] MEDS: HYDROMORPHONE 2 MG INJ 1 MG IV ×3 (02:41→10:53)
[2019-07-24] MEDS: ALBUTEROL 2.5 MG/3 ML NEB (ADULT) INH (02:49)
[2019-07-24 02:56] VITALS: PULSE 63; RESP 18; O2SAT 98
[2019-07-24 03:59] VITALS: BP 151/76; PULSE 80; RESP 16; O2SAT 92
[2019-07-24 04:11] VITALS: TEMP 36.3
[2019-07-24] MEDS: INSULIN ASPART 100 UNIT/ML INSULN PEN SUBCUT ×2 (07:49→12:09)
[2019-07-24 08:00] VITALS: BP 136/80; PULSE 68; RESP 16; TEMP 36.4; O2SAT 96
[2019-07-24] MEDS: ALBUTEROL/IPRATROPIUM 3 ML AMPUL INH ×2 (09:02→12:54)
[2019-07-24 09:05] VITALS: PULSE 63; RESP 16; O2SAT 96
[2019-07-24] MEDS: GLIMEPIRIDE 2 MG TABLET 4 MG PO (09:22)
[2019-07-24] MEDS: ENOXAPARIN 40 MG/0.4 ML SYRINGE SUBCUT (09:22)
[2019-07-24] MEDS: METFORMIN HCL 500 MG TABLET PO (09:22)
[2019-07-24] MEDS: SODIUM CHLORIDE 0.9% 1,000 ML 75 ML IV (09:27)
--- NOTE | 2019-07-24 12:22 | PC.NURSE ---
AM Shift pt is AO, SBA to BR. Reporting moderate pain to right abdominal flank and maintained with 1mg Dilaudid IV (refusing Tylenol). Teary at start of shift due to no one has seen me in days and that she doesn't know what the plan is. I tried to reassure the pt, but she seems to be perseverating on this. NS infusing at 75/hr. Voiding without issues. VSS. CBG checked ACHS. Uncomplient with diet and frustrated with diet limitations.
--- NOTE | 2019-07-24 12:32 | P.DS_ITS ---
History of Present Illness History of Present Illness Date Patient Seen: 07/24/19 Time Patient Seen: 12:34 Chief complaint: really high temp/body pains/sob Narrative: Mrs. Bailey Leger is 38-year-old female patient with history of asthma, COPD, hypertension and diabetes type 2 who presents to the ER with complaints of a high fever. The patient reports she is here visiting for retreat and resides in [facility]. She was in tenriism at 3:00 p.m. when she fell asleep and upon waking had shaking rigors. She was assisted home where her symptoms continued and she developed a fever up to 102.3 ? prompting her to present to the ER. She has so she ended complaints of dizziness, abdominal pain and nausea. She reports no other prodromal symptoms and denies headache nasal congestion or sore throat, chest pain or palpitations or shortness of breath. She has some chest tightness with albuterol treatment. The patient reports no complaints of diarrhea with her last bowel movement this morning and no complaints of urinary symptoms and will wake 2-3 times nightly to void. Nothing seems to make her symptoms better or worse. Upon arrival in the ER patient had a temperature of 102.2?, was tachycardic at 122, blood pressure of 134 over 83, respirations of 20 saturating 94% on room air. A chest x-ray was taken found no acute cardiopulmonary disease process, abdominal CT finds hepatic steatosis but identifies no other intra-abdominal pathology. On CBC she has an elevated white count of 14.1 with hemoglobin of 12.3 and hematocrit of 38.1 and platelets of 189. Her chemistries are all within normal limits with the elevated glucose at 3:06 a.m.. Her anion gap is calculated at 12. She did have an elevated lactate at 2.2 which only fluids went down to 1.6. She has a negative procalcitonin less than 0.05 and a negative flu. Her LFTs are within normal limits with a bilirubin of 0.5. The patient is admitted to the hospital for SIRS with fever of unknown origin. Discharge Providers Provider Date of admission: 07/23/19 01:21 Discharge Date: 07/24/19 Primary care physician: Tono Kendrick MD Consults: 07/23/19 02:11 Consult to Dietitian, Adult Routine Comment: Reason For Exam: morbid obesity Consult to Discharge Planning Routine Comment: 07/23/19 02:42 Consult to Respiratory Therapy Evaluate & Treat Comment: Physician Instructions: Evaluate and treat 07/23/19 03:23 Consult to Respiratory Therapy Evaluate & Treat Comment: Asthma and COPD, nebulizer treatments Physician Instructions: Evaluate and treat Discharge provider: Jose Luis Bailon DO Summary Hospital Course Discharge Diagnosis: 1. Acute systemic inflammatory response syndrome, present on admission, active 2. Diabetes non insulin dependent, uncontrolled, chronic, present on admission, active. 3. Chronic obstructive pulmonary disease, present on admission, active 4. Asthma, chronic, present on admission, active 5. Essential Hypertension, chronic, stable Hospital Course: This is a 38-year-old female patient who is admitted to the hospital with SIRS meeting septic criteria but no identified source. 1. Acute systemic inflammatory response syndrome, present on admission, active. - patient reports chronic cough and asthma history so will treat for presumed community acquired pneumonia, however CXR negative and source is not clearly identified. -The patient meets septic criteria being febrile at 102.2, tachycardic at 122, WBCs of 14.2 and, lactate of 2.2. -the patient has received fluid resuscitation and repeat lactate is 1.6. -no source of infection is identified with negative chest x-ray, negative urin alysis, CT of the abdomen and pelvis being negative and no skin lesions. -blood cultures are drawn, respiratory panel is negative -UA was negative but taken after antibiotics. -will discharge with augmentin and azithromycin to complete 5 day course. 2. Diabetes non insulin dependent, uncontrolled, chronic, present on admission, active. -the patient takes glimepiride 4 mg daily and metformin 500 mg daily. Blood sugar on arrival to the ER is 306. Anion gap is 12. -patient endorses that her blood sugars have been elevated over the last several days in the 160s 170s. She has in the past used correctional insulin as needed. She further was eating large carbohydrate meals as inpatient. -fingerstick blood sugars AC and HS, cover with sliding scale correctional insulin medium range. -Primary care follow up. 3. Chronic obstructive pulmonary disease, present on admission, active -patient with a personal history of smoking. -no changes to home regimen 4. Asthma, chronic, present on admission, active -patient is currently using DuoNeb and albuterol for respiratory management of COPD. -patient presently has scattered wheezing resolved with above treatment of albuterol and duo nebs. -will defer to primary care provider regarding use of inhaled steroids. 5. Essential Hypertension, chronic, stable -will continue patient's home regimen of lisinopril 10 mg daily. Status at Discharge Cognitive/behavioral status at discharge: oriented Functional status at discharge: independent ambulation Overall status at discharge: patient is back to baseline Time Spent with Patient Time spent: Greater than 30 minutes Exam Vital Signs (past 8 hours): - 07/24/19 08:00 07/24/19 09:05 Temperature 97.6 F Pulse Rate 68 63 Respiratory Rate 16 16 Blood Pressure 136/80 Pulse Oximetry 96 96 Fraction of Inspired Oxygen 0.21 Oxygen Delivery Method Room Air Oxygen Flow Rate 0 Narrative Exam Narrative: GENERAL APPEARANCE: Obese female, Well developed, well nourished, in no acute distress. SKIN: Inspection of the skin reveals no rashes, ulcerations or petechiae. HEENT: The sclerae were anicteric and conjunctivae were pink and moist. Extraocular movements were intact and pupils were equal, round with normal accommodation. External inspection of the ears and nose showed no scars, lesions, or masses. Lips, teeth, and gums showed normal mucosa. The oral mucosa, hard and soft palate, tongue and posterior pharynx were unremarkable. NECK: Supple and symmetric. There was no thyroid enlargement, and no tenderness, or masses were felt. CHEST: Normal AP diameter and normal contour without any kyphoscoliosis. LUNGS: Auscultation of the lungs revealed no wheezes, rhonchi, or rales. CARDIOVASCULAR: There was a regular rate and rhythm without any murmurs, gallops, rubs. Peripheral pulses were 2+ and symmetric. ABDOMEN: Soft and nontender with normal bowel sounds. No ascites was noted. MUSCULOSKELETAL: There was no tenderness or effusions noted. Muscle strength and tone were normal. EXTREMITIES: No cyanosis, clubbing or edema. NEUROLOGIC: Alert and oriented x 3. Normal affect. Gait was normal. Strength is +5/5 in the Upper Extremities and Lower Extremities Bilaterally. Sensation to touch was normal. Objective Labs Result Diagrams: 07/23/19 07:20 07/23/19 07:20 Labs: Laboratory Results - last 24 hr 07/23/19 18:01 Urine Color Yellow Urine Appearance Clear Urine pH 6.5 Ur Specific [place] 1.020 Urine Protein Negative Urine Glucose (UA) 2+ H Urine Ketones Negative Urine Occult Blood Trace-lysed Urine Nitrate Negative Urine Bilirubin Negative Urine Urobilinogen 0.2 Ur Leukocyte Esterase Negative Urine RBC 0-1/hpf Urine WBC None seen Ur Squamous Epith Cells 1-5 /hpf Urine Bacteria None seen Ur Culture Indicated? Cult not indicated Discharge Plan Discharge Plan Patient Disposition: Home Discharge comment: You were admitted to the hospital for a high fever. No source of infection was found, which can sometimes happen. You are being treated for a possible pneumonia at home. You should see her primary care doctor within the next week for further management of your COPD/asthma, diabetes, and high blood pressure. No further changes were made to your medications. Discharge Med Rec/Prescriptions Prescriptions: New amoxicillin-pot clavulanate 875-125 mg tablet 1 tab PO BID 5 Days Qty: 10 RF: 0 azithromycin 250 mg tablet See Rx Instructions .ROUTE .COMPLEX Qty: 6 RF: 0 Continued ALBUTEROL SULFATE (Ventolin / Proventil) 1 - 2 puff INH QID PRN (Reason: Respiratory Distress) Qty: 0 RF: 0 LISINOPRIL (Zestril / Prinivil) 10 mg PO Q DAY Qty: 0 RF: 0 Metformin Hydrochloride (Glucophage) 500 mg PO DAILY Qty: 0 RF: 0 ALBUTEROL SULFATE/IPRATROPIUM (Iprat-Albut 0.5-3(2.5) MG/3 Ml) 1 neb INH QID Qty: 0 RF: 0 glimepiride 4 mg tablet 4 mg PO DAILY RF: 0 Follow up/Referrals: Tono Kendrick MD [Primary Care Provider] - Provider Discharge Instructions Diet: Diet as Tolerated and Carb-consistent/Diabetic Activity: No restrictions Discharge Data Primary Care Provider: Tono Kendrick Attending Provider: Jose Luis Carcamo Admit Date/Time: 07/23/19 01:21 Quality VTE Deep Vein Thrombosis/Pulmonary Embolism Present on Admission: No
--- NOTE | 2019-07-24 14:13 | PC.NURSE ---
GRAZYNA Houston removed PIV. DC instructions provided to pt, no questions remain. Belongings packed up and pt transfer via WC to cab at ER entrance.
--- NOTE | 2019-07-24 15:18 | CM.DPC ---
DCP/continued: Received notification from that patient okay to d/c home today. Patient going home on po abx. Met with patient this AM. She appears somewhat agitated at staff. Per patient she is unable to find her credit card and was frustrated at the lack of assistance. Patient reports that she did find her card. Patient continues to report that she needs transport home. Completed Medicaid transport form and faxed to [phone]. Received return phone call from Rachel at [employer] and they have transport through [facility] scheduled for 3:00pm at ED entrance (patient's preference). RN updated and patient will be transported to ED. P: Home today. JESSICA Luna
== END 2019-07-24 14:17 | disposition home or self-care (01) ==
LOC: ED 07-23 01:05 → AC 07-23 15:23
PROVIDERS: Family Medicine; Admitting Provider Nurse Practitioner Adult Health; Emergency Provider Emergency Medicine; PCP Internal Medicine; Visit Provider Nurse Practitioner Adult Health
DX: R65.10 Systemic inflammatory response syndrome (SIRS) of non-infectious origin without acute organ dysfunction (principal); R50.9 Fever, unspecified; F17.210 Nicotine dependence, cigarettes, uncomplicated; E66.01 Morbid (severe) obesity due to excess calories; J44.9 Chronic obstructive pulmonary disease, unspecified; I10 Essential (primary) hypertension; E11.9 Type 2 diabetes mellitus without complications; Z79.84 Long term (current) use of oral hypoglycemic drugs; E86.0 Dehydration
CPT/HCPCS: 36415; 36591; 71045; 74177; 80048; 80053; 80061; 81001; 81003; 82962; 83605; 83690; 83735; 84145; 85025; 87040; 87400; 87633; 93005; 94640; 94760; 94762; 96361; 96365; 96366; 96372; 96375; 96376; 99284; 99285; G0378; J0696; J1170; J1650; J7613; Q9967